=== PATIENT | female | born 1970 | race Two or more races ===

== ENCOUNTER 2022-06-17 05:41 | Day surgery (SDC) | payer OTHER ==
[~2022-06-17] VITALS: Ht 157.5 cm; Wt 59.0 kg
[~2022-06-17 05:41] MED LIST: AVAPRO150 MG PO; BYSTOLIC10 MG PO; LEVOTHYROXINE25 MCG PO
[2022-06-17] MEDS ORDERED: NEURONTIN300 MG PO (10:28)
[2022-06-17] MEDS ORDERED: TRAM1TAB98 PO (10:28)
[2022-06-17] MEDS ORDERED: POLY119PG PO (10:28)
== END 2022-06-17 14:35 | disposition home or self-care (01) ==
LOC: CIR.AMB 05:41
PROVIDERS: ATTEND Surgery
DX: K40.90 Unilateral inguinal hernia, without obstruction or gangrene, not specified as recurrent (principal); Z20.822 Contact with and (suspected) exposure to COVID-19; I10 Essential (primary) hypertension; E03.9 Hypothyroidism, unspecified; Z86.16 Personal history of COVID-19
CPT/HCPCS: 49650; C1781